=== PATIENT | female | born 1980 | race Asian ===

== ENCOUNTER 2022-02-27 13:29 | Emergency (ER) | payer OTHER ==
[~2022-02-27] VITALS: Ht 167.6 cm; Wt 59.0 kg
--- NOTE | 2022-02-27 13:43 | NUR ---
TO ER 1 AWAITING ELSY MOLINA
[2022-02-27] MEDS ORDERED: CYCLOBENZAPRINE 10 MG TABLET PO ONE (14:00)
[2022-02-27] MEDS ORDERED: KETOROLAC TROMETHAMINE INJ 60 MG/2 ML VIAL IM ONE (14:00)
[2022-02-27] MEDS ORDERED: KETOROLAC TROMETHAMINE 15 MG/ML VIAL ONE (14:12)
[2022-02-27] MEDS ORDERED: CYCLOBENZAPRINE 10 MG TABLET ONE (14:13)
[2022-02-27] MEDS ORDERED: NAPR-1164 PO (14:53)
[2022-02-27] MEDS ORDERED: LIDO30AD10 TP (14:53)
--- NOTE | 2022-02-27 15:03 | NUR ---
Patient discharged to home in stable condition. Written and verbal after care instructions given. Patient verbalizes understanding of instruction.
[2022-02-27 15:05] VITALS: BP 121/75
== END 2022-02-27 15:06 | disposition home or self-care (01) ==
LOC: ER 13:29
DX: S33.5XXA Sprain of ligaments of lumbar spine, initial encounter (principal); Z98.890 Other specified postprocedural states; X50.0XXA Overexertion from strenuous movement or load, initial encounter; Y93.89 Activity, other specified; Y92.89 Other specified places as the place of occurrence of the external cause; Y99.8 Other external cause status
CPT/HCPCS: 99283; 96372; 84703; J1885